=== PATIENT | female | born 1990 ===

== ENCOUNTER 2017-03-11 09:24 | Day surgery (SDC) | payer MEDICAID ==
[2017-03-06 07:33] VITALS: BMI 20.7
[2017-03-11] MEDS ORDERED: Lidocaine 1% Inj (20ml) ONE (13:24)
[2017-03-11 13:43] VITALS: RESP 18
--- NOTE | 2017-03-11 13:46 | CP.SDSHP ---
Same Day Surgery H & P - History Proposed Procedure: US guided FNA of thyroid nodule. Pre-Op Diagnosis: thyroid nodule. - Allergies Allergies: Allergies No Known Allergies Allergy (Verified 02/24/14 17:42) - Physical Exam Vital Signs: Vital Signs 03/11/17 03/11/17 13:23 13:43 Temperature 97.8 F Pulse Rate 80 80 Respiratory 16 18 Rate Blood Pressure 96/57 L 99/60 L Mental Status: Alert & Oriented x3 Neuro: WNL Heart: WNL Lungs: WNL - Impression Impression: Pt with a complex mixed solid and cystic right thryoid nodule. Plan US guided FNA of thyroid nodule. Pt. Evaluated Today:Candidate for Anesthesia & Procedure: No - Date & Time Date: 03/11/17 Time: 13:30 Short Stay Discharge - Short Stay Discharge Admitting Diagnosis/Reason for Visit: THYROID NODULE RT Referrals: Stella Gould MD [Primary Care Provider] -
--- NOTE | 2017-03-11 13:47 | PCM.SURG1 ---
Surgeon's Initial Post Op Note - Surgeon's Notes Surgeon: LUIS MIGUEL Hemphill Piece Worker: NONE Type of Anesthesia: Local Pre-Operative Diagnosis: thyroid nodule. Operative Findings: Mixed solid and cystic right thyroid nodule, 3 cm. Post-Operative Diagnosis: thyroid nodule. Operation Performed: US guided FNA of thyroid nodule. Specimen/Specimens Removed: 25 g FNA x 4 Estimated Blood Loss: EBL {In ML}: 0 Blood Products Given: N/A Drains Used: No Drains Post-Op Condition: Good Date of Surgery/Procedure: 03/11/17 Time of Surgery/Procedure: 13:45
[2017-03-11 13:59] VITALS: TEMP 98.2; O2SAT 99
[2017-03-11 14:41] VITALS: BP 99/57; PULSE 83
--- NOTE | 2017-03-12 14:41 | US ---
PROCEDURE: Date of Procedure: 03/11/2017 PROCEDURE: 1. Ultrasound guided FNA of right thyroid nodule, CPT 32124 2. Ultrasound guidance for FNA, 42967 Medications: 4cc 1% Lidocaine HISTORY: Enlarged right thyroid nodule. TECHNIQUE: Following informed consent and procedure time-out, a limited ultrasound patient's neck confirmed the presence of a 2.2 cm complex right thyroid nodule which is mixed solid and cystic. After the patient's neck was prepped and draped in the usual sterile fashion, the skin was anesthetized with 1% lidocaine. Ultrasound-guided fine needle aspiration was then performed of the dominant right thyroid nodule. A total of 4 passes were made into the nodule with 25 gauge needle under ultrasound guidance. The FNA specimen was sent for routine pathology. Post biopsy ultrasound showed no hematoma. IMPRESSION: Ultrasound-guided FNA of the dominant right thyroid nodule.
== END 2017-03-11 14:35 | disposition home or self-care (01) ==
LOC: H.OPSURG 09:24
PROVIDERS: ATTEND Family Medicine
DX: E04.1 Nontoxic single thyroid nodule (principal)

== ENCOUNTER 2017-03-29 14:03 | Emergency (ER) | payer MEDICAID ==
[2017-03-29 14:04] VITALS: BMI 20.7
[2017-03-29 14:17] VITALS: TEMP 98.6
[2017-03-29] MEDS ORDERED: Sodium Chloride 0.9% 1,000 ML IV STA (14:44)
[2017-03-29 15:16] LABS: BASO % 0.5 % (0.0-2.0); EOS % 0.5 % (0.0-4.0); HEMATOCRIT 38.1 % (34.0-47.0); LYMPH # 2.5 K/uL (1.0-4.3); LYMPH % 26.6 % (20.0-40.0); MEAN CELL VOLUME 90.1 fl (81.0-99.0); MEAN CORPUSCULAR HEMOGLOBIN 30.8 pg (27.0-31.0); MEAN CORPUSCULAR HGB CONC 34.1 g/dL (33.0-37.0); MEAN PLATELET VOLUME 8.3 fl (7.2-11.7); MONO % 10.9 % (0.0-10.0); NEUT # 5.7 K/uL (1.8-7.0); NEUT % 61.5 % (50.0-75.0); NRBC % 0.1 % (0.0-0.0); RED CELL DISTRIBUTION WIDTH 12.9 % (11.5-14.5); WHITE BLOOD COUNT 9.3 K/uL (4.8-10.8)
[2017-03-29 15:24] LABS: ALB/GLOB RATIO 1.5 (1.0-2.1); ALKALINE PHOSPHATASE 79 U/L (38-126); ALT/SGPT 38 U/L (9-52); AST/SGOT 40 U/L (14-36); BLOOD UREA NITROGEN 14 mg/dl (7-17); CALCIUM 9.6 mg/dL (8.4-10.2); CARBON DIOXIDE 26 mmol/L (22-30); CHLORIDE 103 mmol/L (98-107); GFR AFRICAN-AMERICAN > 60; GLUCOSE,RANDOM 95 mg/dL (65-105); POTASSIUM 3.8 MMOL/L (3.6-5.0); SODIUM 143 mmol/l (132-148); TOTAL PROTEIN 7.4 G/DL (6.3-8.2)
[2017-03-29] MEDS ORDERED: Sodium Chloride 0.9% 50 ML IV ONE (16:15)
[2017-03-29] MEDS ORDERED: Iohexol 300 100 ML IJ ONE (16:15)
[2017-03-29] MEDS ORDERED: DiphenhydrAMINE 50 mg/ml Inj IVP STA (17:04)
[2017-03-29 17:15] VITALS: BP 101/62; PULSE 77; RESP 20; O2SAT 99
--- NOTE | 2017-03-29 18:04 | CT ---
PROCEDURE: CT scan neck dated 03/29/2017. HISTORY: Right sided neck swelling x 2 days; COMPARISON: No prior study available for comparison however correlation made with thyroid ultrasound 11/23/2016 and ultrasound-guided fine-needle biopsy 03/11/2017. TECHNIQUE: CT scan of the neck with intravenous contrast. Coronal and sagittal reformats generated. Intravenous contrast dose: 90 cc Omnipaque 300 Radiation dose: DLP 314.73mGy-cm This CT exam was performed using one or more of the following dose reduction techniques: Automated exposure control, adjustment of the mA and/or kV according to patient size, and/or use of iterative reconstruction technique. FINDINGS: Re- demonstrated is an approximately 2.56cm cc x 2.34cm ap x 2.05cm t cm hypodense mass density in the right lobe thyroid gland with what appears represent localized area of irregular enhancement along the inferomedial margin of the lumen of this lesion. This could represent large colloid cyst however other thyroid lesions not excluded. . Clinical correlation with biopsy results. . Note that this lesion measured approximately 1.9 x 1.2 x 2.7 cm on prior thyroid ultrasound 11/23/2016. This lesion exerts surrounding mass effect with posterolateral displacement of the right neurovascular bundle. As well as minimal localized mass effect on the right lateral margin of the trachea. Left lobe of the thyroid gland is unremarkable. The submandibular glands and parotid glands unremarkable without mass collection or calcification. The anterior circulation otherwise unremarkable. The common carotid arteries, carotid bifurcations and internal carotid arteries are widely patent. No evidence of atherosclerotic plaque or significant stenosis. The vertebral arteries are also patent throughout. Jugular vein on the left side is larger in caliber/ more dominant than the right. Move some multiple tiny nonspecific bilateral cervical lymph nodes are present none of which appear pathologically enlarged. The oral cavity structures unremarkable. The slight irregularity of the vallecula which could be due to some encroachment of lingual tonsils however some residual and or retained retained secretion may contribute. Free margin of the epiglottis unremarkable. . The aryepiglottic folds and pyriform sinuses are relatively symmetric. True vocal cords and arytenoids are also midline and symmetric. There is mild reversal of the normal cervical lordosis which could be due to patient positioning gantry. The cervical vertebral bodies otherwise unremarkable. Lung apices are clear. Impression: There is an approximately 2.56cm cc x 2.34cm ap x 2.05cm t cm hypodense mass density in the right lobe thyroid gland with what appears represent localized area of irregular enhancement along the inferomedial margin of the lumen of this lesion. This could represent large colloid cyst however other thyroid lesions not excluded. . Clinical correlation with biopsy results. . Note that this lesion measured approximately 1.9 x 1.2 x 2.7 cm on prior thyroid ultrasound 11/23/2016.
--- NOTE | 2017-03-29 19:14 | ED PDOC ---
HPI: General Adult Time Seen by Provider: 03/29/17 15:00 Chief Complaint (Nursing): ENT Problem Chief Complaint (Provider): Increased Swelling and Discomfort with Swallowing History Per: Patient History/Exam Limitations: no limitations Onset/Duration Of Symptoms: Days (x2 days) Current Symptoms Are (Timing): Still Present Additional Complaint(s): Kamla Garcia, a 26 year old female, presents to the ED for evaluation. The patient states she has a biopsy of her thyroid March 11. She reports that for the past 2 days she has been experiencing increased swelling and discomfort with swallowing. Past Medical History Reviewed: Historical Data, Nursing Documentation, Vital Signs Vital Signs: Last Vital Signs Temp 98.6 F 03/29/17 14:14 Pulse 77 03/29/17 16:50 Resp 20 03/29/17 16:50 BP 101/62 03/29/17 16:50 Pulse Ox 99 03/29/17 19:44 - Medical History PMH: No Chronic Diseases - Surgical History Surgical History: No Surg Hx - Family History Family History: States: Unknown Family Hx - Home Medications Home Medications: Ambulatory Orders Medication Instructions Recorded Calcium Carbonate/Vitamin D3 1 each PO DAILY 03/11/17 [Calcium 1,000 + D3 Caplet] Ibuprofen [Motrin Tab] 200 mg PO Q6 PRN 03/11/17 MedroxyPROGESTERone [Depo-Provera] 150 mg IM ASDIR 03/11/17 predniSONE [predniSONE Tab] 2 tab PO DAILY #10 tab 03/29/17 - Allergies Allergies/Adverse Reactions: Allergies Allergy/AdvReac Type Severity Reaction Status Date / Time No Known Allergies Allergy Verified 02/24/14 17:42 Review of Systems ROS Statement: Except As Marked, All Systems Reviewed And Found Negative ENT: Positive for: Throat Swelling, Other (increased swelling and discomfort with swallowing) Physical Exam - Reviewed Nursing Documentation Reviewed: Yes Vital Signs Reviewed: Yes - Physical Exam Appears: Positive for: Non-toxic, No Acute Distress Head Exam: Positive for: ATRAUMATIC, NORMAL INSPECTION, NORMOCEPHALIC Skin: Positive for: Normal Color, Warm, Dry. Negative for: Rash Eye Exam: Positive for: Normal appearance, EOMI, PERRL. Negative for: Nystagmus ENT: Positive for: Normal ENT Inspection Neck: Positive for: Painless ROM, Supple. Negative for: Normal (swelling to right side of neck) Cardiovascular/Chest: Positive for: Regular Rate, Rhythm, Chest Non Tender. Negative for: Tachycardia Respiratory: Positive for: Normal Breath Sounds. Negative for: Rales, Rhonchi, Wheezing, Respiratory Distress Gastrointestinal/Abdominal: Positive for: Normal Exam, Bowel Sounds, Soft. Negative for: Tenderness, Guarding, Rebound Back: Positive for: Normal Inspection. Negative for: L CVA Tenderness, R CVA Tenderness Extremity: Positive for: Normal ROM. Negative for: Tenderness, Deformity, Swelling Neurologic/Psych: Positive for: Alert, Oriented, Gait - Laboratory Results Result Diagrams: 03/29/17 15:00 03/29/17 15:00 - ECG O2 Sat by Pulse Oximetry: 99 (RA) Pulse Ox Interpretation: Normal - Progress ED Course And Treament: Patient to call [facility] on Saturday to arrange f/u appointment Will give referral for Dr. Morris as well. Medical Decision Making Medical Decision Making: Initial Impression: 26 y/o female presenting with increased neck swelling and discomfort with swallowing Initial Plan: * CT Neck Soft Tissue * CMP * Upreg * CBC * Benadryl 50mg IVP * NS 100ml IV 500mls/hr * SOLU-medrol 125mg IVP * Throat culture * Rapid strep Group * Reevaluation Rapid Strep results negative. 1802 Dictated by: Heriberto Wu MD. CT Neck Soft Tissue Impression: There is an approximately 2.56cm cc x 2.34cm ap x 2.05cm hypodense mass density in the right lobe throid gland with what appears represent localized area of irregular enhancement along the inferomedial margin of the lumen of this legion. This could represent large colloid cyst however other thyroid lesions not excluded. Clinical correlation with biopsy results. Note that this lesion measures approximately 1.9 x 1.2 x 2.7 cm on prior thyroid ultrasound 2016. While patient was waiting for the CT Neck she began to experience symptoms of chest tightness. She was given benadryl 50mg and solu medrol 125mg. Patient was noted to be very anxious. Case discussed with family medicine. Prior Biopsy results were reviewed, results are as follows: 03/11/2017 Final Cytologic Diagnosis: Thyroid gland, right lobe , nodule, fine needle aspiration: Benign Consistent with benign follicular nodule. Microscopic description: Benign appearing follicular cells are present in loose clusters and macrofollicular groups in a background of abundant colloid and scattered macrophages. Scribe Attestation Documented by Liana Louis acting as a scribe for Luc Dutton PA-C. Provider Attestation All medical record entries made by the Scribe were at my direction and personally dictated by me. I have reviewed the chart and agree that the record accurately reflects my personal performance of the history, physical exam, medical decision making, and the department course for this patient. I have also personally directed, reviewed, and agree with the discharge instructions and disposition. Disposition - Clinical Impression Clinical Impression: Thyroid nodule - Patient ED Disposition Is Patient to be Admitted: No - Disposition Referrals: [facility] [Outside] Stephenie Morris MD [Medical Doctor] - Disposition: Routine/Home Disposition Time: 19:40 Condition: FAIR Prescriptions: predniSONE [predniSONE Tab] 2 tab PO DAILY #10 tab Instructions: Thyroid Nodules (ED) Forms: [employer] (Congolese)
== END 2017-03-29 19:40 | disposition home or self-care (01) ==
LOC: H.ER 14:03
DX: E04.1 Nontoxic single thyroid nodule (principal)
CPT/HCPCS: 70491; 80053; 81025; 85025; 87070; 87430; 96374; 96375; 99283; J1200; J2930; J7040; Q9967

== ENCOUNTER 2018-09-22 13:30 | Emergency (ER) | payer MEDICAID ==
[2018-09-22 13:31] VITALS: BMI 20.7
[2018-09-22] MEDS ORDERED: Sodium Chloride 0.9% 1,000 ML IV STA (13:53)
[2018-09-22 14:37] LABS: BASO % 0.5 % (0.0-2.0); EOS % 0.3 % (0.0-4.0); HEMOGLOBIN 14.5 g/dL (12.0-16.0); LYMPH % 27.5 % (20.0-40.0); MEAN CELL VOLUME 91.3 fl (81.0-99.0); MEAN CORPUSCULAR HEMOGLOBIN 30.6 pg (27.0-31.0); MEAN CORPUSCULAR HGB CONC 33.6 g/dL (33.0-37.0); MONO # 0.4 K/uL (0.0-0.8); NEUT # 4.7 K/uL (1.8-7.0); NEUT % 65.7 % (50.0-75.0); NRBC % 0.1 % (0.0-0.0); RBC 4.74 Mil/uL (3.80-5.20); RED CELL DISTRIBUTION WIDTH 13.3 % (11.5-14.5); WHITE BLOOD COUNT 7.2 K/uL (4.8-10.8)
[2018-09-22 14:43] LABS: SQUAMOUS EPITHIAL 3 /hpf (0-5); URINE BACTERIA RARE (<OCC); URINE BILIRUBIN NEGATIVE (NEGATIVE); URINE BLOOD NEGATIVE (NEGATIVE); URINE CLARITY SLIGHTY-CLOUDY (Clear); URINE COLOR YELLOW (YELLOW); URINE GLUCOSE (UA) NEG (NEGATIVE); URINE LEUKOCYTE ESTERASE NEG Leu/uL (Negative); URINE PROTEIN NEGATIVE (NEGATIVE); URINE UROBILINOGEN 0.2-1.0 mg/dL (0.2-1.0)
[2018-09-22 14:49] LABS: ALB/GLOB RATIO 1.5 (1.0-2.1); ALBUMIN 4.7 g/dL (3.5-5.0); ALT/SGPT 33 U/L (9-52); AST/SGOT 39 U/L (14-36); BLOOD UREA NITROGEN 21 mg/dl (7-17); CALCIUM 10.5 mg/dL (8.4-10.2); GFR NON-AFRICAN AMERICAN > 60
--- NOTE | 2018-09-22 14:50 | CT ---
Date of service: 09/22/2018 PROCEDURE: CT HEAD WITHOUT CONTRAST. HISTORY: Syncope COMPARISON: None available. TECHNIQUE: Axial computed tomography images were obtained through the head/brain without intravenous contrast. Radiation dose: Total exam DLP = 888.52 mGy-cm. This CT exam was performed using one or more of the following dose reduction techniques: Automated exposure control, adjustment of the mA and/or kV according to patient size, and/or use of iterative reconstruction technique. FINDINGS: HEMORRHAGE: No intracranial hemorrhage. BRAIN: No mass effect or edema. No atrophy or chronic microvascular ischemic changes. VENTRICLES: Unremarkable. No hydrocephalus. CALVARIUM: Unremarkable. PARANASAL SINUSES: Unremarkable as visualized. No significant inflammatory changes. MASTOID AIR CELLS: Unremarkable as visualized. No inflammatory changes. OTHER FINDINGS: None. IMPRESSION: Normal CT of the Head.
--- NOTE | 2018-09-22 15:24 | ED PDOC ---
Syncope/Near Syncope/Dizziness Time Seen by Provider: 09/22/18 13:41 Chief Complaint (Nursing): Syncope Chief Complaint (Provider): Syncope History Per: Patient History/Exam Limitations: no limitations Number Of Syncopal Episodes: 1 Seizure Or Post-ictal Symptoms: None Fall Associated With With Symptoms: No Injury As Result Of Fall Additional History Per: Patient Additional Complaint(s): 28yo female, otherwise well and with no past medical history, comes to ER for evaluation due to syncopal episode occurring prior today. Patient was at work day and while standing, she felt dizzy and told her coworker to "catch her" as she felt like she would pass out. Patient then had a syncopal episode lasting a couple seconds; she did not fall as her coworker had placed her on a chair. She denies any seizure like activity, tongue bite, incontinence, or a post-ictal phase. She currently reports a mild posterior headache and reports tingling to left arm elbow don to her 4th and 5th digits; states these symptoms started aft er the syncopal episode. Otherwise, she denies any trauma, injury, and offers no additional complaints. PMD: Layne Purvis Past Medical History Reviewed: Historical Data, Nursing Documentation, Vital Signs Vital Signs: Last Vital Signs Temp 97.5 F L 09/22/18 13:33 Pulse 88 09/22/18 13:33 Resp 16 09/22/18 13:33 BP 142/99 H 09/22/18 13:33 Pulse Ox 99 09/22/18 13:33 - Medical History PMH: No Chronic Diseases - Surgical History Surgical History: No Surg Hx - Family History Family History: States: Unknown Family Hx - Home Medications Home Medications: Ambulatory Orders Medication Instructions Recorded Calcium Carbonate/Vitamin D3 1 each PO DAILY 03/11/17 [Calcium 1,000 + D3 Caplet] Ibuprofen [Motrin Tab] 200 mg PO Q6 PRN 03/11/17 MedroxyPROGESTERone [Depo-Provera] 150 mg IM ASDIR 03/11/17 predniSONE [predniSONE Tab] 2 tab PO DAILY #10 tab 03/29/17 - Allergies Allergies/Adverse Reactions: Allergies Allergy/AdvReac Type Severity Reaction Status Date / Time No Known Allergies Allergy Verified 02/24/14 17:42 Review of Systems ROS Statement: Except As Marked, All Systems Reviewed And Found Negative Constitutional: Negative for: Fever, Chills Cardiovascular: Positive for: Light Headedness Musculoskeletal: Positive for: Other (tingling left arm) Neurological: Positive for: Dizziness, Other (syncope). Negative for: Weakness, Numbness Physical Exam - Reviewed Nursing Documentation Reviewed: Yes Vital Signs Reviewed: Yes - Physical Exam Appears: Positive for: Non-toxic, No Acute Distress Head Exam: Positive for: ATRAUMATIC, NORMAL INSPECTION, NORMOCEPHALIC Skin: Positive for: Normal Color, Warm, DRY Eye Exam: Positive for: EOMI, Normal appearance, PERRL Neck: Positive for: Normal, Painless ROM, Supple Cardiovascular/Chest: Positive for: Regular Rate, Rhythm. Negative for: Murmur, Tachycardia Respiratory: Positive for: Normal Breath Sounds. Negative for: Respiratory Distress Pulses-Radial (L): 2+ Pulses-Radial (R): 2+ Gastrointestinal/Abdominal: Positive for: Normal Exam, Soft Back: Positive for: Normal Inspection Extremity: Positive for: Normal ROM (FROM of all extremities), Other (normal distal sensations of bilateral arms). Negative for: Tenderness, Deformity, Swelling Neurological/Psych: Positive for: Awake, Alert, Normal Tone, Symmetric/Intact Strength (5/5). Negative for: Motor/Sensory Deficits - Laboratory Results Result Diagrams: 09/22/18 14:20 09/22/18 14:20 Lab Results: Total Bilirubin 0.7 mg/dl (0.2-1.3) 09/22/18 14:20 AST 39 U/L (14-36) H 09/22/18 14:20 ALT 33 U/L (9-52) 09/22/18 14:20 Alkaline Phosphatase 93 U/L (38-126) 09/22/18 14:20 Total Protein 8.0 G/DL (6.3-8.2) 09/22/18 14:20 Albumin 4.7 g/dL (3.5-5.0) 09/22/18 14:20 Globulin 3.2 gm/dL (2.2-3.9) 09/22/18 14:20 Albumin/Globulin Ratio 1.5 (1.0-2.1) 09/22/18 14:20 Urine Color Yellow (YELLOW) 09/22/18 14:20 Urine Clarity Slighty-cloudy (Clear) 09/22/18 14:20 Urine pH 7.0 (5.0-8.0) 09/22/18 14:20 Ur Specific Harleigh 1.014 (1.003-1.030) 09/22/18 14:20 Urine Protein Negative mg/dL (NEGATIVE) 09/22/18 14:20 Urine Glucose (UA) Neg mg/dL (NEGATIVE) 09/22/18 14:20 Urine Ketones Negative mg/dL (NEGATIVE) 09/22/18 14:20 Urine Blood Negative (NEGATIVE) 09/22/18 14:20 Urine Nitrate Negative (NEGATIVE) 09/22/18 14:20 Urine Bilirubin Negative (NEGATIVE) 09/22/18 14:20 Urine Urobilinogen 0.2-1.0 mg/dL (0.2-1.0) 09/22/18 14:20 Ur Leukocyte Esterase Neg Jace/uL (Negative) 09/22/18 14:20 Urine RBC (Auto) 1 /hpf (0-3) 09/22/18 14:20 Urine Microscopic WBC 1 /hpf (0-5) 09/22/18 14:20 Ur Squamous Epith Cells 3 /hpf (0-5) 09/22/18 14:20 Urine Bacteria Rare (<OCC) 09/22/18 14:20 - ECG O2 Sat by Pulse Oximetry: 99 (RA) Pulse Ox Interpretation: Normal Medical Decision Making Medical Decision [place] female with syncopal episode Plan: -- Labs -- CXR -- IV Fluids -- CT head 1450 CT Head FINDINGS: HEMORRHAGE: No intracranial hemorrhage. BRAIN: No mass effect or edema. No atrophy or chronic microvascular ischemic changes. VENTRICLES: Unremarkable. No hydrocephalus. CALVARIUM: Unremarkable. PARANASAL SINUSES: Unremarkable as visualized. No significant inflammatory changes. MASTOID AIR CELLS: Unremarkable as visualized. No inflammatory changes. OTHER FINDINGS: None. IMPRESSION: Normal CT of the Head. 18:01 Patient reports improvement of symptoms after bolus of fluids. Given an appointment with [facility] on 09/24 at 10:30 am. Return precautions provided. Scribe Attestation: Documented by Ebonie Bonilla, acting as a scribe for Brooke Justin MD. Provider Scribe Attestation: All medical record entries made by the Scribe were at my direction and personally dictated by me. I have reviewed the chart and agree that the record accurately reflects my personal performance of the history, physical exam, medical decision making, and the department course for this patient. I have also personally directed, reviewed, and agree with the discharge instructions and disposition. Disposition - Clinical Impression Clinical Impression: Syncope - Disposition Referrals: [email or web address] [Outside] [facility] [Outside] Disposition Time: 18:00 Condition: IMPROVED Additional Instructions: FOLLOW-UP WITH CLINIC ON 09/24/18 @ 10:30 AM. Instructions: Syncope (Fainting) Forms: [email or web address] (Spanish)
--- NOTE | 2018-09-22 15:48 | RAD ---
Date of service: 09/22/2018 HISTORY: Syncope COMPARISON: 05/28/2014 TECHNIQUE: Chest PA and lateral views FINDINGS: LUNGS: No active pulmonary disease. PLEURA: No significant pleural effusion identified. No pneumothorax apparent. CARDIOVASCULAR: No aortic atherosclerotic calcification present. Normal cardiac size. No pulmonary vascular congestion. OSSEOUS STRUCTURES: No significant abnormalities. VISUALIZED UPPER ABDOMEN: Normal. OTHER FINDINGS: None. IMPRESSION: No active disease.
[2018-09-22 17:48] VITALS: TEMP 97
[2018-09-22 17:59] VITALS: BP 100/60; PULSE 86; RESP 20
[2018-09-22 18:04] VITALS: O2SAT 99
--- NOTE | 2018-09-23 06:16 | CARD ---
APPROVED REPORT Date of service: 09/22/2018 EKG Measurement Heart [id number] <Conclusion> Normal sinus rhythm with sinus arrhythmia Normal ECG
== END 2018-09-22 18:02 | disposition home or self-care (01) ==
LOC: H.ER 13:30
DX: R55 Syncope and collapse (principal)
CPT/HCPCS: 70450; 71046; 80053; 81003; 81025; 82948; 85025; 93005; 99285; J7030